=== PATIENT | male | born 1990 | race Caucasian/White ===

== ENCOUNTER 2018-12-26 10:53 | Emergency (ER) | payer OTHER ==
[~2018-12-26] VITALS: Ht 193 cm; Wt 96.2 kg
[2018-12-26 10:58] VITALS: BP 146/80; TEMP 98.4
[2018-12-26] MEDS ORDERED: AMOXICILLIN 8751 TAB PO (12:17)
[2018-12-26 12:28] VITALS: PULSE 68
== END 2018-12-26 12:28 | disposition home or self-care (01) ==
LOC: COL.ER 10:53
DX: S61.252A Open bite of right middle finger without damage to nail, initial encounter (principal); F41.9 Anxiety disorder, unspecified; Z23 Encounter for immunization; W54.0XXA Bitten by dog, initial encounter; Y92.838 Other recreation area as the place of occurrence of the external cause

== ENCOUNTER → 2019-01-06 | Outpatient (CLI) | payer OTHER ==
[~2019-01-06] MED LIST: AMOXICILLIN 8751 TAB PO
[2019-01-06 08:53] VITALS: BP 120/82; PULSE 64; TEMP 98.3
== END ==
LOC: COL.ER 08:46
DX: Z48.02 Encounter for removal of sutures (principal)

== ENCOUNTER 2021-04-16 22:57 | Emergency (ER) | payer BC ==
[~2021-04-16] VITALS: Ht 190.5 cm; Wt 97.7 kg
[2021-04-16 23:16] VITALS: TEMP 97
[2021-04-17 00:23] VITALS: BP 120/86; PULSE 72
== END 2021-04-17 00:23 | disposition home or self-care (01) ==
LOC: COL.ER 22:57
DX: S61.012A Laceration without foreign body of left thumb without damage to nail, initial encounter (principal); W27.2XXA Contact with scissors, initial encounter; Y99.0 Civilian activity done for income or pay